=== PATIENT | male | born 1980 | race Two or more races ===

== ENCOUNTER 2017-11-27 08:08 | Emergency (ER) | payer OTHER ==
--- NOTE | 2017-11-27 08:55 | PDOC ---
History of Present Illness - General Chief Complaint: Lightheaded Stated Complaint: WEAKNESS, LOSS OF APPETITE Time Seen by Provider: 11/27/17 08:25 History Source: Patient Exam Limitations: No Limitations - History of Present Illness Initial Comments: 11/27/17 08:51 37 y/o M with PMH recent sinus infection (Oct 2017; seen by ENT anitha Sebastian with prednisone taper, abx), who presents to the ED with decreased appetite, dehydration and increased weakness over the past two days. As per pt, on Thursday , he started to develop flu like sx: myalgia, sore throat, dry cough. On Thursday morning, he went to urgent care where he tested + for Flu A and was started on a course of Tamiflu 75mg BID. Pt completed 3/5 day course and developed insomnia , lightheadedness on Thursday, so he returned to Urgent Care. He was told that his side effects were from the Tamiflu, so it was d/c and he was encouraged to increase fluid intake/supportive care. Most recently, over the past two days, pt has noticed decreased appetite, dehydration and generalized weakness. Pt states that he feels so weak when he "walks from his bed to the bathroom," more than usual and feels as if his void volume is less compared to the amount of fluids he is taking in. Pt denies KENYON, fever, chills, syncopal episodes, changes in vision, focal neurological deficits, slurred speech, N/V/D, SOB, myalgias, or changes in bowel function. 3 sick contacts at home with flu. 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 denies smoking, alcohol or recreational drug use. Past History - Travel Traveled outside of the country in the last 30 days: No - Past Medical History Allergies/Adverse Reactions: Allergies Allergy/AdvReac Type Severity Reaction Status Date / Time No Known Allergies Allergy Verified 11/27/17 08:16 Home Medications: Ambulatory Orders NK [No Known Home Medication] 04/28/16 COPD: No Other medical history: DENIES. - Suicide/Smoking/Psychosocial Hx Smoking History: Never smoked Review of Systems - Review of Systems Able to Perform ROS?: Yes Musculoskeletal: Yes: Muscle Weakness Psychiatric: Yes: Change in Appetite All Other Systems: Reviewed and Negative *Physical Exam - Vital Signs Last Vital Signs Temp Pulse Resp BP Pulse Ox 97.8 F 76 19 122/77 97 11/27/17 08:17 11/27/17 08:17 11/27/17 08:17 11/27/17 08:17 11/27/17 08:17 - Physical Exam General Appearance: Yes: Nourished, Appropriately Dressed HEENT: positive: EOMI, BERE Neck: positive: Decreased range of motion (decreased active, passive ROM to L) Respiratory/Chest: positive: Lungs Clear, Normal Breath Sounds Cardiovascular: positive: Regular Rhythm, Regular Rate Vascular Pulses: Dorsalis-Pedis (R): 2+, Doralis-Pedis (L): 2+ Gastrointestinal/Abdominal: positive: Normal Bowel Sounds, Soft Musculoskeletal: positive: Normal Inspection Extremity: positive: Normal Capillary Refill, Normal Range of Motion Neurologic: positive: self storage manager II-XII NML intact, Motor Strength 5/5 ED Treatment Course - LABORATORY CBC & Chemistry Diagram: 11/27/17 10:13 11/27/17 10:13 Medical Decision Making - Medical Decision Making 11/27/17 09:04 37 y/o M with PMH recent sinus infection (Oct 2017; seen by ENT anitha Sebastian with prednisone taper, abx), who presents to the ED with decreased appetite, dehydration and increased weakness over the past two days. Possible pt has residual weakness from flu, as only completed 3/5 day Tamiflu course. Pt non septic, will check CXR to see if superimposed PNA though less likely. Pt able to tolerate fluids; will encourage PO fluid intake Will order CBC BMP CXR - r/o superimposed PNA UA Will give the following: IV NS 100cc/hr 11/27/17 10:40 CXR returned, no acute pathology, without infiltrates. CBC, UA WNL. BMP still pending 11/27/17 11:12 BMP WNL. Pt for discharge with supportive care *DC/Admit/Observation/Transfer Diagnosis at time of Disposition: Influenza - Discharge Dispostion Disposition: HOME Condition at time of disposition: Stable Admit: No - Referrals Referrals: Estelle Crawford MD [Primary Care Provider] - - Patient Instructions Additional Instructions: You were recently in the hospital since you were recovering from the flu. While you were here, you had a chest x-ray done which did not show pneumonia. You also had blood work done which did not show infection. We recommend that you continue to hydrate yourself and rest over the next few days. It may take you up to a a few weeks to fully recover from the flu. Please follow up with your primary care doctor in a week. If you have any questions, please let us know. Thank you - Post Discharge Activity
[2017-11-27 08:57] VITALS: BMI 27.2
[2017-11-27 09:00] VITALS: PULSE 69
--- NOTE | 2017-11-27 09:46 | PDOC ---
Attending Attestation - [facility] HPI: 11/27/17 09:47 The patient is a 37 year old male, with no significant past medical history, who presents to the emergency department with generalized weakness and diffuse joint aches for approximately 6 days. The patient reports presenting to urgent care about 5 days ago, after 2 days of body aches and dry cough. At the time, patient was Influenza positive and started on a 5 day course of Tamiflu. Patient reports using Tamiflu for 3 days, and states he began to feel muscle weakness and dizziness. Patient states he returned to Urgent Care for his symptoms, and was told that those are side effects of the medication, but was advised to discontinue it. Since then, patient endorses decreased appetite, continued muscle weakness, and difficulty ambulating. Patient has been able to tolerate fluids. He denies any abdominal pain, nausea, vomiting, diarrhea, or constipation. He denies any current fever, chills, cough, or headache. He denies any chest pain or shortness of breath. Patient reports 3 sick contacts at home, but denies any recent travel. About a month ago, patient reports he had a sinus infection, where he was started on Prednisone and antibiotics. Allergies: NKDA Past Surgical History: Right Labrum surgery Social History: Non smoker. No ETOH or recreational drug use. PCP: Dr. Deras - Medical Decision Making 11/27/17 09:47 Documentation prepared by Chandra Wilson, acting as biomedical equipment specialist for Holly Vásquez MD. <Chandra Wilson - Last Filed: 11/27/17 10:04> - Resident Resident Name: Kya uCmmings - ED Attending Attestation I have performed the following: I have examined & evaluated the patient, The case was reviewed & discussed with the resident, I agree w/resident's findings & plan, Exceptions are as noted - Physicial Exam PE: GENERAL: Awake, alert, and fully oriented, in no acute distress HEAD: No signs of trauma EYES: PERRLA, EOMI, sclera anicteric, conjunctiva clear ENT: Auricles normal inspection, hearing grossly normal, nares patent, oropharynx clear without exudates. Dry mucosa NECK: Normal ROM, supple, no lymphadenopathy, JVD, or masses LUNGS: Breath sounds equal, clear to auscultation bilaterally. No wheezes, and no crackles HEART: Regular rate and rhythm, normal S1 and S2, no murmurs, rubs or gallops ABDOMEN: Soft, nontender, normoactive bowel sounds. No guarding, no rebound. No masses EXTREMITIES: Normal range of motion, no edema. No clubbing or cyanosis. No cords, erythema, or tenderness NEUROLOGICAL: Cranial nerves II through XII grossly intact. Normal speech, normal gait SKIN: Warm, Dry, normal turgor, no rashes or lesions noted. - Medical Decision Making Pt with recent +flu swab, stopped taking tamiflu alf into the course due to side effects. Denies fever, but still feeling ill. Likely just residual symptoms from flu. Will obtain UA and CXR to further evaluate, IVF. Stable for DC home. <Holly Vásquez - Last Filed: 11/27/17 10:16>
[2017-11-27] MEDS ORDERED: SODIUM CHLORIDE 1,000 ML IV SCH (10:15)
[2017-11-27 10:21] LABS: BASO % 0.5 % (0-2.0); EOS % 0.6 % (0-4.5); HEMATOCRIT 41.6 % (35.4-49); HEMOGLOBIN 13.4 GM/dL (11.7-16.9); LYMPH % 37.3 % (8-40); MCHC 32.1 g/dl (32.0-35.9); MEAN PLT VOLUME 9.8 fl (7.5-11.1); MONO % 7.4 % (3.8-10.2); NEUT % 54.2 % (42.8-82.8); PLATELET COUNT 166 K/MM3 (134-434); RBC 4.95 M/mm3 (4.00-5.60); RDW 13.4 % (11.9-15.9); WHITE BLOOD COUNT 5.1 K/mm3 (4.0-10.0)
[2017-11-27 10:23] LABS: URINE APPEARANCE CLEAR; URINE BILIRUBIN NEGATIVE (NEGATIVE); URINE BLOOD NEGATIVE (NEGATIVE); URINE COLOR COLORLESS; URINE GLUCOSE (UA) NEGATIVE (NEGATIVE); URINE KETONE NEGATIVE (NEGATIVE); URINE LEUK ESTERASE NEGATIVE (NEGATIVE); URINE NITRITE NEGATIVE (NEGATIVE); URINE PROTEIN NEGATIVE (NEGATIVE); URINE UROBILINOGEN NEGATIVE mg/dL (0.2-1.0)
[2017-11-27 10:50] LABS: ANION GAP 9 (8-16); BLOOD UREA NITROGEN 15 mg/dL (7-18); CALCIUM 8.3 mg/dL (8.5-10.1); CHLORIDE 105 mmol/L (98-107); CO2 25 mmol/L (21-32); CREATININE 0.9 mg/dL (0.7-1.3); GLUCOSE,RANDOM 80 mg/dL (74-106); POTASSIUM 3.9 mmol/L (3.5-5.1); SODIUM 139 mmol/L (136-145)
[2017-11-27 11:48] VITALS: BP 129/87; TEMP 95.2
== END 2017-11-27 11:49 | disposition home or self-care (01) ==
LOC: JER 08:08
PROC: 3E0337Z Introduction of Electrolytic and Water Balance Substance into Peripheral Vein, Percutaneous Approach (ICD-10-PCS; principal; 2017-11-27)
DX: R63.0 Anorexia (principal); J10.1 Influenza due to other identified influenza virus with other respiratory manifestations
CPT/HCPCS: 36415; 71045-TC-FY; 80048; 81003; 85025; 99284-25

== ENCOUNTER 2018-12-03 02:17 | Emergency (ER) | payer OTHER ==
[2018-12-03] MEDS ORDERED: morphine CARPU-JECT 4 MG/1 ML DISP.SYRIN IVPUSH ONE ×2 (02:20→02:46)
[2018-12-03 02:21] VITALS: BP 140/96; PULSE 92; TEMP 98.6; BMI 25.8
[2018-12-03] MEDS ORDERED: morphine SULFATE 4 MG/ML VIAL ONE ×2 (02:24→02:46)
[2018-12-03] MEDS ORDERED: LIDOCAINE HCL 2% (20ML MULTI-DOSE VIAL) NR ONE (02:42)
--- NOTE | 2018-12-03 03:00 | PDOC ---
History of Present Illness - General Chief Complaint: Shoulder Dislocation Stated Complaint: SHOULDER PAIN Time Seen by Provider: 12/03/18 02:19 History Source: Patient Exam Limitations: No Limitations - History of Present Illness Initial Comments: 12/03/18 02:52 38 year old male with past medical history of R shoulder surgery and dislocation presents with R shoulder dislocation. Pt reported that he had turned over in bed and felt his right shoulder "pop" out. Denies numbness, weakness. Came into ED with pain. Past History - Past Medical History Allergies/Adverse Reactions: Allergies Allergy/AdvReac Type Severity Reaction Status Date / Time No Known Allergies Allergy Verified 12/03/18 02:20 Home Medications: Ambulatory Orders NK [No Known Home Medication] 04/28/16 COPD: No - Immunization History Immunization Up to Date: Yes - Suicide/Smoking/Psychosocial Hx Smoking History: Never smoked Have you smoked in the past 12 months: No Information on smoking cessation initiated: No Hx Alcohol Use: No Drug/Substance Use Hx: No Substance Use Type: None Review of Systems - Review of Systems Able to Perform ROS?: Yes Comments:: 12/03/18 03:00 GENERAL/CONSTITUTIONAL: [No fever or chills. No weakness. No weight change.] HEAD, EYES, EARS, NOSE AND THROAT: [No change in vision. No ear pain or discharge. No sore throat.] CARDIOVASCULAR: [No chest pain or shortness of breath.] RESPIRATORY: [No cough, wheezing, or hemoptysis.] GASTROINTESTINAL: [No nausea, vomiting, diarrhea or constipation. No rectal bleeding.] GENITOURINARY: [No dysuria, frequency, or change in urination.] MUSCULOSKELETAL: [No muscle swelling or pain. No neck or back pain.] + R shoulder pain. SKIN AND BREASTS: [No rash or easy bruising.] NEUROLOGIC: [No headache, vertigo, loss of consciousness, or loss of sensation.] PSYCHIATRIC: [No depression or anxiety.] ENDOCRINE: [No increased thirst. No abnormal weight change.] HEMATOLOGIC/LYMPHATIC: [No anemia, easy bleeding, or history of blood clots.] ALLERGIC/IMMUNOLOGIC: [No hives or skin allergy. No latex allergy.] *Physical Exam - Vital Signs Last Vital Signs Temp Pulse Resp BP Pulse Ox 98.6 F 92 H 20 140/96 99 12/03/18 02:20 12/03/18 02:20 12/03/18 02:20 12/03/18 02:20 12/03/18 02:20 - Physical Exam Comments: 12/03/18 03:00 GENERAL: Awake, alert, and fully oriented, in no acute distress HEAD: No signs of trauma EYES: PERRLA, auricles normal inspection, hearing grossly normal, nares patent, Moist mucosa NECK: Normal ROM, supple EXTREMITIES: RUE: 2+ radial pulse. Sensation intact throughout. Sensation and strength intact in median/radian/ulnar distribution. Sensation intact over the right deltoid. Appears deformed - anterior dislocation NEUROLOGICAL: Cranial nerves II through XII grossly intact. Normal speech SKIN: Warm, Dry, normal turgor, no rashes or lesions noted. Moderate Sedation - Procedure Monitoring Vital Signs: Procedure Monitoring Vital Signs Temperature 98.6 F 12/03/18 02:20 Pulse Rate 92 H 12/03/18 02:20 Respiratory Rate 20 12/03/18 02:20 Blood Pressure 140/96 12/03/18 02:20 O2 Sat by Pulse Oximetry (%) 99 12/03/18 02:20 Procedures - Joint Reduction Right Joint Reduction Site: right: Shoulder Pre-Procedure NV Exam: normal Conscious Sedation: No Reduction Attempts: 1 Procedure: Scapular Manipulation Post-Procedure NV Exam: normal Complications: No Post Joint Reduction Film: joint reduced Immobilized: Yes ED Treatment Course - Medications Given in the ED: ED Medications Discontinued Medications Generic Name Dose Route Start Last Admin Trade Name Freq PRN Reason Stop Dose Admin Morphine Sulfate 4 mg 12/03/18 02:20 12/03/18 02:29 Morphine Injection - IVPUSH 12/03/18 02:21 4 mg ONCE ONE Administration Morphine Sulfate 4 mg 12/03/18 02:46 12/03/18 02:48 Morphine Injection - IVPUSH 12/03/18 02:47 4 mg ONCE ONE Administration Medical Decision Making - Medical Decision Making 12/03/18 03:04 Vital Signs Temp Pulse Resp BP Pulse Ox 98.6 F 92 H 20 140/96 99 12/03/18 02:20 12/03/18 02:20 12/03/18 02:20 12/03/18 02:20 12/03/18 02:20 Pt with R anterior dislocation. Pt given IV morphine with 10 cc of 1% lidocaine without epinephrine intrarticular injection. Via the gauthier technique, we successfully reduced the shoulder. The xrays reviewed by me (it appears that both pre-reduction and post-reduction xray were placed together in one xray requisition, which is why it looks like pt has a dislocation and relocated shoulder). It is currently reduced. Pt is now pain free. Neurovascularly intact. Pt placed in sling. He will follow up with orthopedics today. I discussed the physical exam findings, ancillary test results and final diagnoses with the patient. I answered all of the patient's questions. The patient was satisfied with the care received and felt comfortable with the discharge plan and treatment plan. The patient will call their primary care physician within 24 hours to arrange follow-up and will return to the Emergency Department with any new, persistant or worsening symptoms. *DC/Admit/Observation/Transfer Diagnosis at time of Disposition: Shoulder dislocation Qualifiers: Encounter type: initial encounter Laterality: right Qualified Code(s): S43.004A - Unspecified dislocation of right shoulder joint, initial encounter - Discharge Dispostion Disposition: HOME Condition at time of disposition: Stable Decision to Admit order: No - Referrals - Patient Instructions Printed Discharge Instructions: DI for Shoulder Dislocation Additional Instructions: You have had an anterior shoulder dislocation which is now reduced. Please wear the sling at all times. However, by the 3rd day, if you are still wearing the sling, make sure you take your arm out of the sling and gentle rotate your shoulder to prevent frozen shoulder. Do this at least once an hour for several minutes. Follow up with the orthopedist. Call to schedule an appointment. You can take 600 mg ibuprofen every 6 hours as needed for pain. - Post Discharge Activity
== END 2018-12-03 03:28 | disposition home or self-care (01) ==
LOC: JER 02:17
PROC: 0RSJXZZ Reposition Right Shoulder Joint, External Approach (ICD-10-PCS; principal; 2018-12-03)
DX: S43.004A Unspecified dislocation of right shoulder joint, initial encounter (principal)
CPT/HCPCS: 73030-TC-LT-FY; 73030-TC-RT-FY; 99282-25

== ENCOUNTER 2019-06-01 21:18 | Emergency (ER) | payer OTHER ==
[2019-06-01 21:27] VITALS: BP 147/79; PULSE 76; TEMP 97.8; BMI 27.3
--- NOTE | 2019-06-01 21:28 | PDOC ---
Rapid Medical Evaluation Chief Complaint: Shortness of Breath Time Seen by Provider: 06/01/19 21:25 Medical Evaluation: Allergies Allergy/AdvReac Type Severity Reaction Status Date / Time No Known Allergies Allergy Verified 06/01/19 21:25 06/01/19 21:25 I have performed a brief in-person evaluation of this patient. The patient presents with a chief complaint of: h/o Asthma present with complains of 1 weeks h/o intermittent CP , SOB and chest tightness. report seeing PCP yesterday for symptoms which PCP did bloodwork and EKG with no findings. pt report feeling weak. report CP is localized to left side. Pertinent physical exam findings: A&O x 3. heart RRR I have ordered the following: EKG, CBC, CMP, cardiac profile. CXR The patient will proceed to the ED for further evaluation. Discharge Disposition - Diagnosis SOB (shortness of breath) - Discharge Dispostion Condition at time of disposition: Stable - Referrals - Patient Instructions - Post Discharge Activity
[2019-06-01 21:59] LABS: BASO % 0.6 % (0-2.0); EOS % 1.8 % (0-4.5); HEMATOCRIT 41.9 % (35.4-49); HEMOGLOBIN 13.9 GM/dL (11.7-16.9); LYMPH % 38.5 % (8-40); MCH 28.1 pg (25.7-33.7); MCHC 33.2 g/dl (32.0-35.9); MEAN CELL VOLUME 84.9 fl (80-96); MEAN PLT VOLUME 9.5 fl (7.5-11.1); MONO % 7.3 % (3.8-10.2); NEUT % 51.8 % (42.8-82.8); PLATELET COUNT 197 K/MM3 (134-434); RBC 4.94 M/mm3 (4.00-5.60); RDW 13.3 % (11.9-15.9); WHITE BLOOD COUNT 7.9 K/mm3 (4.0-10.0)
[2019-06-01 22:40] LABS: ALBUMIN 4.2 g/dl (3.4-5.0); ALK PHOS 97 U/L (45-117); ANION GAP 12 MMOL/L (8-16); BILIRUBIN,TOTAL 0.4 mg/dL (0.2-1); CHLORIDE 105 mmol/L (98-107); CO2 23 mmol/L (21-32); CREATININE 1.4 mg/dL (0.55-1.3); GLUCOSE,RANDOM 134 mg/dL (74-106); POTASSIUM 3.7 mmol/L (3.5-5.1); SGOT/AST 25 U/L (15-37); SGPT/ALT 33 U/L (13-61); SODIUM 140 mmol/L (136-145); TOT PROT 7.7 g/dl (6.4-8.2)
--- NOTE | 2019-06-01 23:27 | PDOC ---
History of Present Illness - General Chief Complaint: Shortness of Breath Stated Complaint: DIFFICULTY BREATHING Time Seen by Provider: 06/01/19 21:25 History Source: Patient Exam Limitations: No Limitations - History of Present Illness Initial Comments: Pt is a 38 yo M, with PMH of asthma (well-controlled on albuterol MDI), GERD ( treated for H pylori), who is presenting with chest tightness since yesterday. Pt states he feels like he was having an "asthma flare-up". Pt took his MDI shortly before presentation, and states his symptoms have now improved. Pt has never taken steroids, nor been hospitalized or intubated for his asthma. Pt denies any fevers/chills, headache, vision changes, syncope, chest pain, palpitations, SOB, nausea/vomiting, abdominal pain, urinary symptoms, diarrhea/ constipation, or leg swelling. Allergies: NKDA PCP: Dr. Crawford Social: Pt denies any cigarette, alcohol, or drug use. Pt denies any recent travel or sick contacts. Surgical: no relevant history. Family: no relevant history. 06/02/19 06:17 Past History - Travel Traveled outside of the country in the last 30 days: No Close contact w/someone who was outside of country & ill: No - Past Medical History Allergies/Adverse Reactions: Allergies Allergy/AdvReac Type Severity Reaction Status Date / Time No Known Allergies Allergy Verified 06/01/19 21:25 Home Medications: Ambulatory Orders NK [No Known Home Medication] 04/28/16 Asthma: Yes COPD: No Other medical history: seasonal allergies - Immunization History Immunization Up to Date: Yes - Suicide/Smoking/Psychosocial Hx Smoking History: Never smoked Have you smoked in the past 12 months: No Hx Alcohol Use: No Drug/Substance Use Hx: No Substance Use Type: None Review of Systems - Review of Systems Able to Perform ROS?: Yes Is the patient limited Tanzanian proficient: No Constitutional: Yes: Weight Stable. No: Chills, Diaphoresis, Fever, Loss of Appetite, Malaise, Weakness HEENTM: No: Blurred Vision, Double Vision, Nose Congestion, Throat Pain, Throat Swelling Respiratory: No: Cough, Orthopnea, Shortness of Breath, Wheezing, Productive cough, Hemoptysis Cardiac (ROS): Yes: See HPI, Chest Tightness. No: Chest Pain, Edema, Irregular Heart Rate, Lightheadedness, Palpitations, Syncope ABD/GI: No: Constipated, Diarrhea, Nausea, Poor Appetite, Poor Fluid Intake, Vomiting : No: Burning, Dysuria, Frequency, Pain, Urgency Musculoskeletal: No: Back Pain, Joint Pain, Muscle Pain, Muscle Weakness Integumentary: No: Change in Color, Rash Neurological: No: Headache, Numbness, Paresthesia, Weakness, Unsteady Gait, Dizziness Psychiatric: No: Sleep Pattern Change, Change in Appetite Endocrine: No: Increased Urine, Change in Weight Hematologic/Lymphatic: No: Anemia, Blood Clots, Easy Bleeding, Easy Bruising All Other Systems: Reviewed and Negative *Physical Exam - Vital Signs Last Vital Signs Temp Pulse Resp BP Pulse Ox 97.8 F 76 18 147/79 99 06/01/19 21:25 06/01/19 21:25 06/01/19 21:25 06/01/19 21:25 06/01/19 21:25 - Physical Exam Comments: Vitals stable, pt afebrile. Pt in NAD, speaking in full sentences. Normal body habitus. Pt alert and oriented x3. director statistical programming generally intact, muscular strength and sensation intact. No midline spinal tenderness, step-offs, or crepitus. Head normocephalic, atraumatic. Eyes PERRLA, EOMI. Oropharynx without erythema or exudates, no LAD b/l. No nasal congestion, hearing intact. Clear heart sounds, S1/S2, no JVD, b/l pedal edema, or heart murmur. Clear lung sounds, no respiratory distress, wheezes, crackles, or accessory muscle use. No abdominal or CVA tenderness to palpation, no rebound, no guarding. Abdomen soft, non-distended, and with normoactive bowel sounds. Skin without jaundice or rash. 06/02/19 06:22 ED Treatment Course - LABORATORY CBC & Chemistry Diagram: 06/01/19 21:51 06/01/19 21:51 - ADDITIONAL ORDERS Additional order review: Laboratory Results 06/01/19 21:51 Sodium 140 Potassium 3.7 Chloride 105 Carbon Dioxide 23 Anion Gap 12 BUN 19.0 H Creatinine 1.4 H Est GFR (CKD-EPI)AfAm 72.83 Est GFR (CKD-EPI)NonAf 62.84 Random Glucose 134 H Calcium 9.0 Total Bilirubin 0.4 AST 25 ALT 33 Alkaline Phosphatase 97 Creatine Kinase 358 H Creatine Kinase Index 0.8 CK-MB (CK-2) 2.9 Troponin I < 0.02 Total Protein 7.7 Albumin 4.2 06/01/19 21:51 RBC 4.94 MCV 84.9 MCHC 33.2 RDW 13.3 MPV 9.5 Neutrophils % 51.8 Lymphocytes % 38.5 Monocytes % 7.3 Eosinophils % 1.8 D Basophils % 0.6 Medical Decision Making - Medical Decision Making Pt was seen at bedside, also will be seen by attending Dr. Jackson. Pt presenting with complaints of chest tightness since yesterday, consistent with his asthma, which relieved with MDI. Will evaluate for labs, EKG, chest x-ray to r/o ACS vs pneumonia. Pt PERC negative for PE. Will continue to reassess pt and monitor for symptomatic improvement. ECG: NSR, intervals WNL (HR 73, NV 140, QRS 110, QTc 453). No TWIs or significant ST segment changes. No prior ECG for comparison. 06/02/19 06:22 Labs WNL, trop negative. Pt states feels improved, asking to go home. F/u with PCP. Return precautions provided with pt understanding. 06/02/19 06:26 *DC/Admit/Observation/Transfer Diagnosis at time of Disposition: Chest tightness - Discharge Dispostion Disposition: HOME Condition at time of disposition: Improved Decision to Admit order: No - Referrals Referrals: Estelle Crawford MD [Primary Care Provider] - - Patient Instructions Printed Discharge Instructions: DI for Asthma -- Adult Additional Instructions: You were seen in the ER today for chest tightness. The results of your labs and imaging today were normal. Please follow-up with your primary care doctor within 1-2 days to discuss your visit and make sure your symptoms have improved. Please return to the ER if you have any worsening pain, development of fevers or chills, loss of consciousness, inability to tolerate food or fluids , or any other concerns. You can continue to take your albuterol inhaler every 4-6 hours as needed for chest tightness. - Post Discharge Activity
--- NOTE | 2019-06-01 23:28 | PDOC ---
Documentation entered by Frank Smith SCRIBE, acting as scribe for Brendan Jackson MD. Brendan Jackson MD: This documentation has been prepared by the Sarah osorio Elijah, SCRIBE, under my direction and personally reviewed by me in its entirety. I confirm that the documentation accurately reflects all work, treatment, procedures, and medical decision making performed by me. Attending Attestation - Resident Resident Name: CandaceAisha - ED Attending Attestation I have performed the following: I have examined & evaluated the patient, The case was reviewed & discussed with the resident, I agree w/resident's findings & plan - HPI HPI: 06/01/19 23:27 38 y/o male with hx/o asthma, no intubations presents to ED for chest tightness relieved by home albuterol MDI. pt denies cp/fever/chills/n/v. pt reports previus hx/o similar sxs. - Physicial Exam PE: 06/01/19 23:24 pt is awake and alert, well appearing, in no distress nc, atr perrla, eomi no oropharengeal erythema, cta rrr no LEs edema - Medical Decision Making 06/01/19 23:25 Patient patient is a 38-year-old male with history of (no intubations) she is presents with episodes of chest tightness and shortness of breath and was relieved by administration of patient's albuterol MDI. Patient denied chest pain and is currently asymptomatic and wishing to be discharged. EKG shows no evidence acute ischemia. Patient is negative for PE by perc rule. I do not suspect ACS. Troponin is negative (CPK is noted to be elevated but CK MB index is negative). There is no indication for steroid therapy at this time. Chest x -ray reveals no evidence of cardiomegaly/infiltrate or effusion. We'll discharge.
--- NOTE | 2019-06-02 16:59 | EKG ---
Test Reason : Blood Pressure : / mmHG Vent. Rate : 073 BPM Atrial Rate : 073 BPM P-R Int : 140 ms QRS Dur : 110 ms QT Int : 412 ms P-R-T Axes : 075 044 033 degrees QTc Int : 453 ms NORMAL SINUS RHYTHM POSSIBLE LEFT ATRIAL ENLARGEMENT BORDERLINE ECG WHEN COMPARED WITH ECG OF 16-OCT-2008 23:16, NO SIGNIFICANT CHANGE WAS FOUND Confirmed by FRANCHESKA HERNANDEZ MD ([id number]) on 06/02/2019 4:59:32 PM Referred By: Confirmed By:FRANCHESKA HERNANDEZ MD
== END 2019-06-01 23:30 | disposition home or self-care (01) ==
LOC: JER 21:18
DX: R07.89 Other chest pain (principal); J45.909 Unspecified asthma, uncomplicated
CPT/HCPCS: 36415; 71046-TC-FY; 80053; 82550; 82553; 84484; 85025; 93005; 93010; 99282-25

== ENCOUNTER 2019-06-02 13:51 | Emergency (ER) | payer OTHER ==
[2019-06-02 14:07] VITALS: BMI 27.1
[2019-06-02] MEDS ORDERED: SODIUM CHLORIDE 1,000 ML IV STA (14:08)
--- NOTE | 2019-06-02 14:11 | PDOC ---
Rapid Medical Evaluation Chief Complaint: Chest Pain Time Seen by Provider: 06/02/19 14:03 Medical Evaluation: Allergies Allergy/AdvReac Type Severity Reaction Status Date / Time No Known Allergies Allergy Verified 06/02/19 14:07 Vital Signs Temp Pulse Resp BP Pulse Ox 98.2 F 74 18 149/94 100 06/02/19 14:02 06/02/19 14:02 06/02/19 14:02 06/02/19 14:02 06/02/19 14:02 06/02/19 14:09 Pt c/o: dizziness, weak and chest pain, seen here yesterday for similar complaints, denies drug/etoh/anxiety Pt on brief exam: vss, appears off balanced Pt ordered for: labs, urine, drug tox, head ct, ivf Pt to proceed to the ED Discharge Disposition - Diagnosis Dizziness, Chest tightness, Acute asthma exacerbation - Discharge Dispostion Disposition: HOME Condition at time of disposition: Stable - Prescriptions Prescriptions: Methylprednisolone [Medrol Dose Liam] 4 mg PO ASDIR #21 tablet - Referrals Referrals: Estelle Crawford MD [Primary Care Provider] - Nando Mendes MD [Staff Physician] - - Patient Instructions Printed Discharge Instructions: DI for Atypical Chest Pain Additional Instructions: All your bloodwork is normal. Take prescribed medication as prescribed. Increase fluid intake. Follow-up with referred vacuum spindle sander - Post Discharge Activity
[2019-06-02 14:37] LABS: BASO % 0.5 % (0-2.0); EOS % 0.5 % (0-4.5); HEMATOCRIT 42.2 % (35.4-49); HEMOGLOBIN 14.3 GM/dL (11.7-16.9); LYMPH % 30.1 % (8-40); MCH 28.1 pg (25.7-33.7); MCHC 33.9 g/dl (32.0-35.9); MEAN PLT VOLUME 9.1 fl (7.5-11.1); MONO % 6.2 % (3.8-10.2); NEUT % 62.7 % (42.8-82.8); PLATELET COUNT 201 K/MM3 (134-434); RBC 5.08 M/mm3 (4.00-5.60); RDW 13.3 % (11.9-15.9); WHITE BLOOD COUNT 7.6 K/mm3 (4.0-10.0)
[2019-06-02 14:52] LABS: URINE APPEARANCE CLEAR; URINE BILIRUBIN NEGATIVE (NEGATIVE); URINE COLOR YELLOW; URINE GLUCOSE (UA) NEGATIVE (NEGATIVE); URINE KETONE NEGATIVE (NEGATIVE); URINE LEUK ESTERASE NEGATIVE (NEGATIVE); URINE NITRITE NEGATIVE (NEGATIVE); URINE PROTEIN NEGATIVE (NEGATIVE); URINE UROBILINOGEN 0.2 mg/dL (0.2-1.0)
[2019-06-02 15:04] LABS: ALBUMIN 4.2 g/dl (3.4-5.0); ALK PHOS 98 U/L (45-117); ANION GAP 12 MMOL/L (8-16); BILIRUBIN,TOTAL 0.7 mg/dL (0.2-1); BLOOD UREA NITROGEN 15.5 mg/dL (7-18); CALCIUM 9.3 mg/dL (8.5-10.1); CHLORIDE 107 mmol/L (98-107); CO2 22 mmol/L (21-32); CREATININE 1.2 mg/dL (0.55-1.3); GLUCOSE,RANDOM 103 mg/dL (74-106); POTASSIUM 3.8 mmol/L (3.5-5.1); SGOT/AST 22 U/L (15-37); SGPT/ALT 34 U/L (13-61); SODIUM 140 mmol/L (136-145); TOT PROT 7.7 g/dl (6.4-8.2)
[2019-06-02 16:04] LABS: COCAINE, UR NEGATIVE ng/ml (CUTOFF=300); METHADONE, UR NEGATIVE ng/ml (CUTOFF=300); OPIATES, URI NEGATIVE ng/ml (CUTOFF=300); PHENCYCLIDINE,URINE NEGATIVE ng/ml (CUTOFF=25); URINE AMPHETAMINES NEGATIVE ng/ml (CUTOFF=500); URINE BARBITURATES NEGATIVE ng/ml (CUTOFF=200); URINE BENZODIAZEPINES NEGATIVE ng/ml (CUTOFF=200)
--- NOTE | 2019-06-02 16:58 | EKG ---
Test Reason : Blood Pressure : / mmHG Vent. Rate : 075 BPM Atrial Rate : 075 BPM P-R Int : 132 ms QRS Dur : 106 ms QT Int : 404 ms P-R-T Axes : 075 047 053 degrees QTc Int : 451 ms NORMAL SINUS RHYTHM POSSIBLE LEFT ATRIAL ENLARGEMENT BORDERLINE ECG WHEN COMPARED WITH ECG OF 01-JUN-2019 21:32, NO SIGNIFICANT CHANGE WAS FOUND Confirmed by FRANCHESKA HERNANDEZ MD ([id number]) on 06/02/2019 4:58:17 PM Referred By: Confirmed By:FRANCHESKA HERNANDEZ MD
[2019-06-02] MEDS ORDERED: hydrOXYzine PAMOATE 25 MG CAPSULE (FP) PO ONE (18:04)
[2019-06-02] MEDS ORDERED: methylPREDNISolone NA SUCC 125 MG/2 ML VIAL IM ONE (18:04)
--- NOTE | 2019-06-02 18:04 | PDOC ---
History of Present Illness - General Chief Complaint: Chest Pain Stated Complaint: CHEST PAIN Time Seen by Provider: 06/02/19 14:03 History Source: Patient Exam Limitations: Clinical Condition - History of Present Illness Initial Comments: 06/02/19 16:17 Patient with you of asthma present with complaint of chest tightness, weakness, chest pain and malaise for 4 days now. Patient was seen and he should be office 3 days ago for same symptoms and blood work and workup done was normal. Patient was seen again in the ED here yesterday for same symptoms and all workup was negative. Patient reported felt better but now started having chest tightness again. Denies vomiting, fever, cough, diarrhea or abdominal pains. Timing/Duration: other (4 days) Past History - Past Medical History Allergies/Adverse Reactions: Allergies Allergy/AdvReac Type Severity Reaction Status Date / Time No Known Allergies Allergy Verified 06/02/19 14:07 Home Medications: Ambulatory Orders Methylprednisolone [Medrol Dose Liam] 4 mg PO ASDIR #21 tablet 06/02/19 Asthma: Yes COPD: No - Immunization History Immunization Up to Date: Yes - Suicide/Smoking/Psychosocial Hx Smoking History: Never smoked Have you smoked in the past 12 months: No Information on smoking cessation initiated: No Hx Alcohol Use: No Drug/Substance Use Hx: No Substance Use Type: None Review of Systems - Review of Systems Able to Perform ROS?: Yes Is the patient limited Lao proficient: No Constitutional: Yes: Weakness. No: Chills, Fever HEENTM: No: Symptoms Reported, See HPI, Eye Pain, Blurred Vision, Tearing, Recent change in vision, Double Vision, Cataracts, Ear Pain, Ocular Prothesis, Ear Discharge, Nose Pain, Nose Congestion, Tinnitus, Nose Bleeding, Hearing Loss , Throat Pain, Throat Swelling, Mouth Pain, Dental Problems, Difficulty Swallowing, Mouth Swelling, Other Respiratory: Yes: Symptoms reported, See HPI, Shortness of Breath (intermittent) . No: Cough, Orthopnea, SOB with Exertion, SOB at Rest, Stridor, Wheezing, Productive cough, Hemoptysis, Other Cardiac (ROS): Yes: Symptoms Reported, See HPI, Chest Tightness (intermittent). No: Chest Pain, Edema, Irregular Heart Rate, Lightheadedness, Palpitations, Syncope, Other ABD/GI: No: Nausea, Vomiting Integumentary: No: Symptoms Reported Neurological: Yes: Symptoms reported, Weakness. No: Headache, Numbness, Paresthesia, Dizziness All Other Systems: Reviewed and Negative *Physical Exam - Vital Signs Last Vital Signs Temp Pulse Resp BP Pulse Ox 98.2 F 74 18 149/94 100 06/02/19 14:02 06/02/19 14:02 06/02/19 14:02 06/02/19 14:02 06/02/19 14:02 - Physical Exam Comments: 06/02/19 18:03 GENERAL: Well developed, well nourished. Awake and alert. No acute distress. HEENT: Normocephalic, atraumatic. PERRLA, EOMI. No conjunctival pallor. Sclera are non-icteric. Moist mucous membranes. Oropharynx is clear. NECK: Supple. Full ROM. CARDIOVASCULAR: Regular rate and rhythm. No murmurs, rubs, or gallops. Distal pulses are 2+ and symmetric. PULMONARY: No evidence of respiratory distress. Lungs clear to auscultation bilaterally. No wheezing, rales or rhonchi. ABDOMINAL: Soft. Non-tender. Non-distended. No rebound or guarding. No organomegaly. Normoactive bowel sounds. MUSCULOSKELETAL Normal range of motion at all joints. EXTREMITIES: No cyanosis. No clubbing. No edema. No calf tenderness. SKIN: Warm and dry. Normal capillary refill. No rashes. No jaundice. NEUROLOGICAL: Alert, awake, appropriate. Gait is normal without ataxia. PSYCHIATRIC: Cooperative. Good eye contact. Appropriate mood General Appearance: Yes: Nourished, Appropriately Dressed. No: Apparent Distress ED Treatment Course - LABORATORY CBC & Chemistry Diagram: 06/02/19 14:21 06/02/19 14:21 - ADDITIONAL ORDERS Additional order review: Laboratory Results 06/02/19 06/02/19 06/02/19 14:25 14:25 14:21 Sodium 140 Potassium 3.8 Chloride 107 Carbon Dioxide 22 Anion Gap 12 BUN 15.5 Creatinine 1.2 Est GFR (CKD-EPI)AfAm 87.75 Est GFR (CKD-EPI)NonAf 75.72 Random Glucose 103 Calcium 9.3 Total Bilirubin 0.7 AST 22 ALT 34 Alkaline Phosphatase 98 Creatine Kinase 237 Creatine Kinase Index 0.8 CK-MB (CK-2) 2.0 Troponin I < 0.02 Total Protein 7.7 Albumin 4.2 Urine Color Yellow Urine Appearance Clear Urine pH 8.0 Ur Specific Gabriels 1.013 Urine Protein Negative Urine Glucose (UA) Negative Urine Ketones Negative Urine Blood Negative Urine Nitrite Negative Urine Bilirubin Negative Urine Urobilinogen 0.2 Ur Leukocyte Esterase Negative Opiates Screen Negative Methadone Screen Negative Barbiturate Screen Negative Phencyclidine Screen Negative Ur Amphetamines Screen Negative MDMA (Ecstasy) Screen Negative Benzodiazepines Screen Negative Cocaine Screen Negative U Marijuana (THC) Screen Positive A* 06/02/19 14:21 RBC 5.08 MCV 83.0 MCHC 33.9 RDW 13.3 MPV 9.1 Neutrophils % 62.7 D Lymphocytes % 30.1 D Monocytes % 6.2 Eosinophils % 0.5 Basophils % 0.5 - Medications Given in the ED: ED Medications Discontinued Medications Generic Name Dose Route Start Last Admin Trade Name Freq PRN Reason Stop Dose Admin Sodium Chloride 1,000 mls @ 1,000 mls/hr 06/02/19 14:08 06/02/19 16:55 Normal Saline - IV 06/02/19 15:07 1,000 mls/hr ASDIR STA Administration Medical Decision Making - Medical Decision Making 06/02/19 18:19 Patient with you of asthma present with complaint of chest tightness, weakness, chest pain and malaise for 4 days now. Patient was seen PCP office 3 days ago for same symptoms and blood work and workup done was normal. Patient was seen again in the ED here yesterday for same symptoms and all workup was negative. Patient reported felt better but now started having chest tightness again. Denies vomiting, fever, cough, diarrhea or abdominal pains. Exam unremarkable and labs done from triage unremarkable. Head CT done shows no acute pathology . Symptoms likely asthma exacerbation versus viral syndrome. IV bolus 1 L ordered. Reassess after IV medication 06/02/19 18:22 Patient reported feeling some mild chest tightness again and also feeling mildly anxious. Solu-Medrol 125 mg IM ordered for bronchospasm. Vistaril 50 mg by mouth ordered for anxiety 06/02/19 19:17 Patient feeling better after solumedrol IM and hydroxyzine pomoate. Patient stable for discharge with pulmonology follow-up *DC/Admit/Observation/Transfer Diagnosis at time of Disposition: Dizziness, Chest tightness Acute asthma exacerbation Qualifiers: Asthma severity: mild Asthma persistence: intermittent Qualified Code(s): J45.21 - Mild intermittent asthma with (acute) exacerbation - Discharge Dispostion Disposition: HOME Condition at time of disposition: Stable Decision to Admit order: No - Prescriptions Prescriptions: Methylprednisolone [Medrol Dose Liam] 4 mg PO ASDIR #21 tablet - Referrals Referrals: Estelle Crawford MD [Primary Care Provider] - Nando Mendes MD [Staff Physician] - - Patient Instructions Printed Discharge Instructions: DI for Atypical Chest Pain Additional Instructions: All your bloodwork is normal. Take prescribed medication as prescribed. Increase fluid intake. 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
[2019-06-02] MEDS ORDERED: methylPREDNISolone NA SUCC 125 MG/2 ML VIAL ONE ×2 (18:12→18:27)
[2019-06-02] MEDS ORDERED: hydrOXYzine HCL 50 MG/ML VIAL IM ONE (18:26)
[2019-06-02 18:55] VITALS: BP 132/94; PULSE 62; TEMP 97.5
== END 2019-06-02 19:38 | disposition home or self-care (01) ==
LOC: JER 13:51
PROC: 3E0333Z Introduction of Anti-inflammatory into Peripheral Vein, Percutaneous Approach (ICD-10-PCS; principal; 2019-06-02)
PROC: 3E0337Z Introduction of Electrolytic and Water Balance Substance into Peripheral Vein, Percutaneous Approach (ICD-10-PCS; 2019-06-02)
DX: R07.89 Other chest pain (principal); J45.21 Mild intermittent asthma with (acute) exacerbation; R42 Dizziness and giddiness
CPT/HCPCS: 36415; 70450-TC; 80053; 80307; 81003; 82550; 82553; 84484; 85025; 93005; 93010; 99283-25; J7030

== ENCOUNTER 2019-06-16 10:33 | Emergency (ER) | payer OTHER ==
[2019-06-16 10:42] VITALS: TEMP 97.6; BMI 25.1
[2019-06-16] MEDS ORDERED: FAMOTIDINE 20 MG/50 ML IVPB 20 MG in PREMIX 50 IVPB ONE (11:38)
[2019-06-16] MEDS ORDERED: MAG HYDROX/AL HYDROX/SIMETH -MYLANTA- ORAL SUSPENSION PO ONE (11:38)
[2019-06-16] MEDS ORDERED: SODIUM CHLORIDE 1,000 ML IV ONE (11:47)
--- NOTE | 2019-06-16 11:49 | PDOC ---
History of Present Illness - General Chief Complaint: Pain Stated Complaint: ABD PAIN Time Seen by Provider: 06/16/19 11:11 History Source: Patient Exam Limitations: No Limitations - History of Present Illness Travel History: No Initial Comments: 06/16/19 11:48 38y M hx of recent failed treatment for h. pylori being followed by Dr. Harris of GI presents with persistent epigastric disocmfort that he is taking reglan/ zofran and syncopal episode - the pt was at work, flelt lightheaded and was told he looked pale and syncopized. he denies any associtaed headache, chest pain, palpitations, new abd pain, rectal bleeding/melena, dysuria, frqueucny, leg swelling, vomiting, hemetemisis, feve/chills, cough. Pt denies any ETOH use, NSAID abuse, recreational drug use, smoking. PMD: Dr. Crawford Constitutional - no reported Fever, Chills, HEENT: no reported vision changes, sore throat Respiratory: no reported cough, sob, hemoptysis Cardiac: +light headedness, syncope no reported chest pain, palpitations, leg swelling Abd/GI: +abd pain no reported nausea, vomiting, blood per rectum, melena, diarrhea : no reported dysuria, frequency, discharge Musculskelatal - no reported back pain, joint swelling skin - no reported bruising, erythema, rash neurological: no reported headache, numbness, focal weakness, tingling, ataxia, hematologic: no reported easy bruising, easy bleeding GENERAL: The patient is awake, alert, and fully oriented, Nontoxic - in no acute distress. HEAD: Normocephalic, atraumatic. EYES: extraocular movements intact, sclera anicteric, conjunctiva clear. ENT: Normal voice, Moist mucous membranes. NECK: Normal range of motion, supple LUNGS: Breath sounds equal, clear to auscultation bilaterally. No wheezes, no rhonchi, no rales. HEART: Regular rate and rhythm, normal S1 and S2 without murmur, rub or gallop. ABDOMEN: Soft, nontender, normoactive bowel sounds. No guarding, no rebound. . No CVA tenderness EXTREMITIES: Normal range of motion, no edema. No clubbing or cyanosis. No cords, erythema, or tenderness. NEUROLOGICAL: No facial assymetry, Normal speech, PSYCH: Normal mood, normal affect. SKIN: Warm, Dry, normal turgor, suspect gastritis for his abd pain - but wlil obtian lipase to r/o pancreatitis will treat sympmaticly with pepcid/maalox will obtain cbc, ekg, cmp to screen for mtabolic derangemen, arrythma for his syncopal episode - no associated new types of pain o suggest disseciton/pe/sah will dino fluids will reassess Past History - Past Medical History Allergies/Adverse Reactions: Allergies Allergy/AdvReac Type Severity Reaction Status Date / Time No Known Allergies Allergy Verified 06/16/19 10:42 Home Medications: Ambulatory Orders Methylprednisolone [Medrol Dose Liam] 4 mg PO ASDIR #21 tablet 06/02/19 Asthma: Yes COPD: No Other medical history: H-Pyloric - Immunization History Immunization Up to Date: Yes - Suicide/Smoking/Psychosocial Hx Smoking History: Never smoked Have you smoked in the past 12 months: No Information on smoking cessation initiated: No Hx Alcohol Use: No Drug/Substance Use Hx: No Substance Use Type: None *Physical Exam - Vital Signs Last Vital Signs Temp Pulse Resp BP Pulse Ox 97.6 F 60 19 136/96 100 06/16/19 10:39 06/16/19 10:39 06/16/19 10:39 06/16/19 10:39 06/16/19 10:39 Heart Score/ECG Review - ECG Impressions Comment:: 06/16/19 13:33 Twelve-lead EKG was performed and reviewed by me. There is normal sinus rhythm with a rate of 58 The axis is normal. The intervals are normal. There is normal R wave progression There are no ST or T wave abnormalities. Impression: sinus [place] ED Treatment Course - LABORATORY CBC & Chemistry Diagram: 06/16/19 11:57 06/16/19 11:57 Medical Decision Making - Medical Decision Making 06/16/19 13:40 labs reivewed pt feeling improved will dc with pmd and gi fu I discussed the physical exam findings, ancillary test results and final diagnoses with the patient. I answered all of the patient's questions. The patient was satisfied with the care received and felt comfortable with the discharge plan and treatment plan. The patient will call their primary care physician within 24 hours to arrange follow-up and will return to the Emergency Department with any new, persistent or worsening symptoms. 06/16/19 14:[address] crawford who recommends possibley keepin gthe pt overnight, pt declines. i had an indepth discussion with the patient and he prefers outpatient management. he did have a CT head and a holter monitoring that he turned in yesterday and doesnt yet know the results. he pierre follow up with dr. inés robles. *DC/Admit/Observation/Transfer Diagnosis at time of Disposition: Gastritis Qualifiers: Gastritis type: unspecified gastritis Chronicity: chronic Gastritis bleeding: without bleeding Qualified Code(s): K29.50 - Unspecified chronic gastritis without bleeding Syncope Qualifiers: Syncope type: vasovagal syncope Qualified Code(s): R55 - Syncope and collapse - Discharge Dispostion Disposition: HOME Condition at time of disposition: Improved Decision to Admit order: No - Referrals Referrals: Estelle Crawford MD [Staff Physician] - Kyle Harris MD [Staff Physician] - Nick Bland MD [Staff Physician] - - Patient Instructions Printed Discharge Instructions: DI for Syncope in Adults (Fainting), DI for Gastritis Additional Instructions: Return to the emergency department immediately with ANY new, persistent or worsening symptoms includin gany chest pain, shortnes of breath, black stool, vomiting blood or any other concerns. Take the maalox and pepcid as directed. You MUST call and follow up with your primary care doctor, gi doctor and cardilogist for further evaluation of your symptoms. Results were discussed with you. Please make sure your doctor reviews the results of your emergency evaluation. Your Emergency Department visit is not complete without a follow up with your doctor. Print Language: KAZAKH - Post Discharge Activity
[2019-06-16] MEDS ORDERED: MAG HYDROX/AL HYDROX/SIMETH 30 ML UNIT-DOSE CUP ONE (11:53)
[2019-06-16] MEDS ORDERED: FAMOTIDINE 20 MG/50 ML IVPB 20 MG/50 ML MG IVPB ONE (11:54)
--- NOTE | 2019-06-16 12:25 | EKG ---
Test Reason : Blood Pressure : / mmHG Vent. Rate : 058 BPM Atrial Rate : 058 BPM P-R Int : 132 ms QRS Dur : 108 ms QT Int : 448 ms P-R-T Axes : 064 039 039 degrees QTc Int : 439 ms SINUS BRADYCARDIA OTHERWISE NORMAL ECG WHEN COMPARED WITH ECG OF 02-JUN-2019 14:00, NO SIGNIFICANT CHANGE WAS FOUND Confirmed by FRANCHESKA HERNANDEZ MD ([id number]) on 06/16/2019 12:24:49 PM Referred By: DR ISBELL Confirmed By:FRANCHESKA HERNANDEZ MD
[2019-06-16 12:37] LABS: BASO % 0.3 % (0-2.0); EOS % 0.2 % (0-4.5); HEMATOCRIT 41.2 % (35.4-49); HEMOGLOBIN 13.7 GM/dL (11.7-16.9); LYMPH % 27.9 % (8-40); MCH 28.3 pg (25.7-33.7); MCHC 33.3 g/dl (32.0-35.9); MEAN CELL VOLUME 84.9 fl (80-96); MEAN PLT VOLUME 9.3 fl (7.5-11.1); MONO % 5.1 % (3.8-10.2); NEUT % 66.5 % (42.8-82.8); PLATELET COUNT 217 K/MM3 (134-434); RBC 4.85 M/mm3 (4.00-5.60); RDW 13.3 % (11.9-15.9); WHITE BLOOD COUNT 10.3 K/mm3 (4.0-10.0)
[2019-06-16 13:04] LABS: ALBUMIN 4.3 g/dl (3.4-5.0); BILIRUBIN,TOTAL 0.5 mg/dL (0.2-1); BLOOD UREA NITROGEN 14.1 mg/dL (7-18); CALCIUM 9.2 mg/dL (8.5-10.1); POTASSIUM 3.8 mmol/L (3.5-5.1); TOT PROT 7.8 g/dl (6.4-8.2)
[2019-06-16 14:21] VITALS: BP 126/80; PULSE 65
== END 2019-06-16 14:22 | disposition home or self-care (01) ==
LOC: JER 10:33
PROC: 3E0337Z Introduction of Electrolytic and Water Balance Substance into Peripheral Vein, Percutaneous Approach (ICD-10-PCS; principal; 2019-06-16)
PROC: 3E033GC Introduction of Other Therapeutic Substance into Peripheral Vein, Percutaneous Approach (ICD-10-PCS; 2019-06-16)
DX: K29.50 Unspecified chronic gastritis without bleeding (principal); R55 Syncope and collapse
CPT/HCPCS: 36415; 80053; 83690; 85025; 93005; 93010; 99284-25; J7030

== ENCOUNTER 2023-04-22 19:27 | Emergency (ER) | payer OTHER ==
[2023-04-22 19:37] VITALS: TEMP 98; BMI 26.4
[2023-04-22] MEDS ORDERED: LIDOCAINE HCL 1%, 10 MG/ML (10ML VIAL) MDV ONE (19:50)
[2023-04-22] MEDS ORDERED: ACETAMINOPHEN 325 MG TABLET (FP) PO ONE (20:01)
[2023-04-22] MEDS ORDERED: LIDOCAINE HCL 1%, 10 MG/ML (50 mL VIAL) SQ ONE (20:02)
[2023-04-22] MEDS ORDERED: ACETAMINOPHEN 325 MG TABLET (FP) ONE (20:03)
[2023-04-22] MEDS ORDERED: LIDOCAINE 5% TOPICAL PATCH ONE (20:36)
[2023-04-22] MEDS ORDERED: LIDOCAINE 5% TOPICAL PATCH TP ONE (20:47)
[2023-04-22 20:48] VITALS: BP 112/62; PULSE 64; RESP 16
[2023-04-22] MEDS ORDERED: LIDOCAINE PATCH REMOVAL MC ONE (22:00)
== END 2023-04-22 20:53 | disposition home or self-care (01) ==
LOC: JER 19:27
PROC: 0RSJXZZ Reposition Right Shoulder Joint, External Approach (ICD-10-PCS; principal; 2023-04-22)
DX: S43.004A Unspecified dislocation of right shoulder joint, initial encounter (principal); M25.511 Pain in right shoulder; W21.00XA Struck by hit or thrown ball, unspecified type, initial encounter
CPT/HCPCS: 73030-TC-RT-FY; 99283-25